=== PATIENT | male | born 1985 | race African-American/Black ===

== ENCOUNTER 2016-10-06 12:52 | Emergency (ER) | payer OTHER ==
[2016-10-06 13:16] LABS: EOSINOPHIL (%) 0.2 % (0-5); HEMATOCRIT 46.2 % (38.0-50.0); IMMATURE GRANULOCYTE (%) 0.7 % (0.0-0.7); IMMATURE GRANULOCYTE COUNT 0.1 K/uL; INSTRUMENT ABS NEUTROPHIL CT 9.9 K/uL; LYMPHOCYTE COUNT 0.9 K/uL (1.0-2.8); MCH 27.9 PG (29.0-34.0); MCV 82.1 FL (86-99); MEAN PLAT.VOLUME 10.1 uM^3 (9.0-12.4); MONOCYTE (%) 10.6 % (3-12); MONOCYTE COUNT 1.3 K/uL (0-0.8); NEUTROPHIL COUNT 9.9 K/uL (1.8-6.4); PLATELET COUNT 273 K/uL (156-360); RBC DIS.WIDTH-CV 11.8 % (11.8-14.6); RBC DIS.WIDTH-SD 35.1 % (39-53); RED BLOOD COUNT 5.63 M/uL (4.00-5.50); WHITE BLOOD COUNT 12.3 K/uL (4.1-10.2)
[2016-10-06 13:25] LABS: AMYLASE 152 IU/L (1-118); CHLORIDE 103 mEq/L (99-109); POTASSIUM 3.9 mEq/L (3.7-5.4); SODIUM 139 mEq/L (136-147)
[2016-10-06 13:27] LABS: GLUCOSE 110 mg/dL (70-99)
[2016-10-06 13:28] LABS: ANION GAP 12 MEQ/L (2-14)
[2016-10-06 13:30] LABS: SERUM ETHYL ALCOHOL < 10 mg/dL
[2016-10-06 13:32] LABS: UREA NITROGEN (BUN) 16 mg/dL (9-23)
[2016-10-06 13:33] LABS: GFR ESTIMATE (CALCULATED) > 59 mL/min/
[2016-10-06 13:34] LABS: LIPASE 15 U/L (1.0-51.0)
[2016-10-06] MEDS ORDERED: PERCOCET 5/31 TABLET PO (17:14)
== END 2016-10-06 18:13 ==
LOC: TRA 12:52
PROVIDERS: Emergency Medicine
DX: S51.811A Laceration without foreign body of right forearm, initial encounter (principal); S01.412A Laceration without foreign body of left cheek and temporomandibular area, initial encounter; S01.112A Laceration without foreign body of left eyelid and periocular area, initial encounter; S01.111A Laceration without foreign body of right eyelid and periocular area, initial encounter; X99.8XXA Assault by other sharp object, initial encounter; Y92.149 Unspecified place in prison as the place of occurrence of the external cause; Y99.8 Other external cause status; S01.21XA Laceration without foreign body of nose, initial encounter; S11.91XA Laceration without foreign body of unspecified part of neck, initial encounter; S00.511A Abrasion of lip, initial encounter; S20.412A Abrasion of left back wall of thorax, initial encounter; S60.512A Abrasion of left hand, initial encounter; S60.511A Abrasion of right hand, initial encounter; S80.811A Abrasion, right lower leg, initial encounter; S20.211A Contusion of right front wall of thorax, initial encounter; M54.5 Low back pain; J45.909 Unspecified asthma, uncomplicated; Z23 Encounter for immunization
CPT/HCPCS: 70450; 70486; 71010; 71260; 72125; 72129; 72132; 72170; 74177; 80048; 81003; 82150; 83690; 85025; 86900; 86901; 99281; 99285; G0480; J0690; J1170; J1885; J2405; J7050